=== PATIENT | male | born 1995 | race Caucasian/White ===

== ENCOUNTER 2019-05-02 15:40 | Emergency (ER) | payer MEDICAID, OTHER ==
[2019-05-02] MEDS ORDERED: Lidocaine 1% with EPINEPHrine 1:100,000 20 ML MDV INJECT ONE (15:52)
[2019-05-02] MEDS ORDERED: Diphtheria,Pertussis(Acell),Tetanus Vaccine 0.5 ML SDV IM ONE (16:46)
[2019-05-02] MEDS ORDERED: Bacitracin/Neomycin/Polymyxin B Oint 0.9 GM U/D Packet ONE (16:54)
--- NOTE | 2019-05-02 17:06 | EDM.PDOC ---
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 He sustained lacerations over the dorsum aspect of his left the dominant hand of the long ring and little finger just distal to the metacarpal joints. He comes in today for laceration repair. No other complaints are voiced. He denies any numbness or tingling in his fingers. He has full active flexion and extension at the DIP PIP and metacarpal joints left hand. He is unaware of his last tetanus update. Onset: Today Onset Date: 05/02/19 Onset Time: 14:30 Duration: Minutes: Location: Reports: Upper Extremity, Left Quality: Reports: Ache Severity: Mild Improves with: Reports: None Worsens with: Reports: None Associated Symptoms: Reports: No Other Symptoms Left Finger-Ring Pain Score (Numeric/FACES): 6 - Related Data Allergies Allergy/AdvReac Type Severity Reaction Status Date / Time No Known Drug Allergies Allergy Cannot Verified 05/02/19 15:44 Remember Home Meds: Home Meds . [No Known Home Meds] 04/17/18 [History] Past Medical History - Past Health History Medical/Surgical History: Denies Medical/Surgical History Neurological History: Reports: Concussion - Past Surgical History Neurological Surgical History: Reports: None Social & Family History - Family History Family Medical History: Noncontributory - Tobacco Use Smoking Status *Q: Never Smoker Second Hand Smoke Exposure: No - Caffeine Use Caffeine Use: Reports: None - Alcohol Use Days Per Week of Alcohol Use: 3 Number of Drinks Per Day: 1 Total Drinks Per Week: 3 - Recreational Drug Use Recreational Drug Use: No ED ROS GENERAL - Review of Systems Review Of Systems: ROS reveals no pertinent complaints other than HPI. ED EXAM, SKIN/RASH Exam: See Below Exam Limited By: No Limitations General Appearance: Alert, WD/WN, No Apparent Distress Ears: Hearing Grossly Normal Throat/Mouth: Normal Voice Head: Atraumatic Neck: Normal Inspection Respiratory/Chest: No Respiratory Distress Extremities: Normal Inspection, Normal Range of Motion, Non-Tender, Normal Capillary Refill. No: Joint Swelling Neurological: Alert, Oriented, Normal Cognition, Normal Gait, No Motor/Sensory Deficits Psychiatric: Normal Affect, Normal Mood Skin: Warm, Dry, Intact, Normal Color, No Rash, Wound/Incision (Left hand long, ring, small finger dorsally just distal to the DIP joint) ED SKIN PROCEDURES - Laceration/Wound Repair Left Proximal Dorsal Digit - 5th (Baby) Appearance: Subcutaneous, Mildly Contaminated Distal NVT: Neuro & Vascular Intact, No Tendon Injury Anesthetic Type: Local Local Anesthesia - Lidocaine (Xylocaine): 1% with EPI Local Anesthetic Volume: Other (10 mL) Skin Prep: Chlorhexidine (Hibiciens), Providone-Iodine (Betadine), Sterile Drape Saline Irrigation (cc's): 30 Exploration/Debridement/Repair: Wound Explored, In a Bloodless Field Closed with: Sutures Lac/Wound length In cm: 3 Suture Size: 5-0 # of Sutures: 8 Suture Type: Mattress Course - Vital Signs Last Recorded V/S: Last Vital Signs Temp 96.4 F 05/02/19 15:48 Pulse 79 05/02/19 15:48 Resp 16 05/02/19 15:48 BP 153/100 H 05/02/19 15:48 Pulse Ox 97 05/02/19 15:48 - Orders/Labs/Meds Orders: Active Orders 24 hr Category Date Time Status Vaccines to be Administered [RC] PER UNIT ROUTINE Care 05/02/19 16:46 Active Meds: Medications Discontinued Medications Generic Name Dose Route Start Last Admin Trade Name Tobinq PRN Reason Stop Dose Admin Diphtheria/Tetanus/Acell Pertussis 0.5 ml 05/02/19 16:46 05/02/19 16:48 Adacel IM 05/02/19 16:47 0.5 ml .ONCE ONE Administration Lidocaine/Epinephrine 20 ml 05/02/19 15:52 05/02/19 16:47 Xylocaine 1% With Epinephrine 1:100,000 INJECT 05/02/19 15:53 10 ml ONETIME ONE Administration Neomycin/Polymyxin/Bacitracin Confirm 05/02/19 16:54 Triple Antibiotic Oint Administered 05/02/19 16:55 Dose 1 each .ROUTE .STK-MED ONE Departure - Departure Time of Disposition: 17:08 Disposition: Home, Self-Care 01 Condition: Good Clinical Impression: Laceration of finger of left hand Qualifiers: Encounter type: initial encounter Finger: middle finger Damage to nail status: without damage Foreign body presence: without foreign body Qualified Code(s): S61.213A - Laceration without foreign body of left middle finger without damage to nail, initial encounter Laceration of left ring finger Qualifiers: Encounter type: initial encounter Damage to nail status: without damage Foreign body presence: without foreign body Qualified Code(s): S61.215A - Laceration without foreign body of left ring finger without damage to nail, initial encounter Laceration of left little finger Qualifiers: Encounter type: initial encounter Damage to nail status: without damage Foreign body presence: without foreign body Qualified Code(s): S61.217A - Laceration without foreign body of left little finger without damage to nail, initial encounter - Discharge Information Instructions: Laceration Care, Adult Referrals: Lynsey Doll MD [Primary Care Provider] - - My Orders Last 24 Hours: My Active Orders 05/02/19 16:46 Vaccines to be Administered [RC] PER UNIT ROUTINE - Assessment/Plan Last 24 Hours: My Active Orders 05/02/19 16:46 Vaccines to be Administered [RC] PER UNIT ROUTINE Assessment:: Laceration left long finger Laceration left ring finger Laceration left fifth finger Plan: 1. Duricef 500 mg 1 by mouth twice a day for 3 days 2. Dressing change in 72 hours. Keep incisions clean dry intact and cover with Band-Aid 3. Suture removal with primary care in 10-12 days.
== END 2019-05-02 17:25 | disposition home or self-care (01) ==
LOC: KA.ED 15:40
DX: S61.213A Laceration without foreign body of left middle finger without damage to nail, initial encounter (principal); S61.215A Laceration without foreign body of left ring finger without damage to nail, initial encounter; S61.217A Laceration without foreign body of left little finger without damage to nail, initial encounter; Z23 Encounter for immunization; W22.8XXA Striking against or struck by other objects, initial encounter
CPT/HCPCS: 12002; 90471; 90715; 99283